=== PATIENT | male | born 1955 | race Caucasian/White ===

== ENCOUNTER 2022-06-14 17:01 | Emergency (ER) | payer SELFPAY ==
[~2022-06-14] VITALS: Ht 167.6 cm; Wt 90.7 kg
[2022-06-14 17:36] VITALS: BP 133/77
[2022-06-14] MEDS ORDERED: CLIN300C12 PO (18:38)
[2022-06-14] MEDS ORDERED: CLINDAMYCIN HCL 150 MG CAPSULE ONE (18:47)
[2022-06-14] MEDS ORDERED: CLINDAMYCIN HCL 150 MG CAPSULE PO ONE (19:00)
== END 2022-06-14 18:56 | disposition home or self-care (01) ==
LOC: ER 17:01
DX: L03.221 Cellulitis of neck (principal)